=== PATIENT | female | born 2000 | race Caucasian/White ===

== ENCOUNTER 2025-01-16 18:13 | Emergency (ER) | payer MEDICAID, SELFPAY ==
[2025-01-16 19:21] VITALS: BP 110/65; PULSE 84; RESP 17; TEMP 36.9; O2SAT 99
--- NOTE | 2025-01-16 19:27 | PD.EDPREG ---
ED OB Contraction Preg RMI/HPI General Chief complaint: Vaginal Bleeding Stated complaint: Vaginal bleeding since last night, + preg test Time Seen by Provider: 01/16/25 19:27 Arrival date/time: 01/16/25 18:13 RME / HPI RME / HPI Narrative: This section includes all my notes and documentations, including HPI, PE, and ED course. Kosta Smith MD HPI: 24 y/o female with Hx of oligomenorrhea presents with vaginal bleeding and cramping x approximately 24 hours. Patient's LMP was the second or third week of September. She has taken 2 positive home tests. Patient has not received any care. No other complaints. ROS: All negative except as documented in HPI. Physical Exam: General: Alert and oriented. No acute distress when remaining still. Eyes: Conjunctivae and lids clear. ENT: No nasal congestion. Neck: Supple. Heart: RRR. Lungs: No respiratory distress. Good air movement. No rhonchi, wheezing, rales. Abdomen: Soft and nontender. Normal bowel sounds. No distension. No rebound or guarding. Back: No CVA tenderness. Skin: Warm and dry. Neuro: Alert and oriented X 3. I reviewed all diagnostic test results: My interpretation of the EKG is: My interpretation of the chest x-ray is: My review of the CT report is: Blood tests and urine tests Covid/Influenza At this point, diagnoses include: Treatment here included: Critical care Significant improvement Recommended Not yet done: I discussed the case with our hospitalist. About the presentation and exam and diagnostics and treatments here. And need of further care in the hospital. Will accept the patient. Not yet done: Based on my best medical judgment, made decision no further evaluation or treatment indicated at this time. Patient understands and agrees to the discharge instructions customized and printed, see below. Kosta Smith MD Related Data Previous Rx's ?Medication ?Instructions ?Recorded ibuprofen 600 mg tablet 600 mg PO Q8H PRN fever or pain 07/01/18 #30 tabs ondansetron HCl 4 mg tablet 4 mg PO QID PRN nausea and 07/01/18 (Zofran) vomiting #10 tabs Allergies Allergy/AdvReac Type Severity Reaction Status Date / Time No Known Allergies Allergy Verified 01/16/25 18:19 Review of Systems Review of Systems Systems Reviewed: All systems reviewed, normal except as documented ED Exam Narrative Physical exam: Refer to HPI above Course Quality Measures none Orders Category Date Time Status US OB <= 14 weeks fetus Stat Exams 01/16/25 19:30 Ordered Beta HCG,Quantitative Stat Lab 01/16/25 19:31 Ordered Bilirubin,Direct Stat Lab 01/16/25 19:31 Ordered CBC Stat Lab 01/16/25 19:31 Ordered CMP [Comprehensive Metabolic Panel] Stat Lab 01/16/25 19:31 Ordered Drug Screen,Urine Stat Lab 01/16/25 19:37 Received Free T4 (Free Thyroxine) Stat Lab 01/16/25 19:31 Ordered Magnesium Stat Lab 01/16/25 19:31 Ordered Rh Testing Only Stat Lab 01/16/25 19:31 Ordered TSH [Thyroid Stimulating Hormone] Stat Lab 01/16/25 19:31 Ordered UA, C/S IF [Urinalysis, C/S if Indicated] Stat Lab 01/16/25 19:37 Completed Vital Signs Vital signs: Vital Signs Temperature 98.5 F 01/16/25 19:21 Pulse Rate 84 01/16/25 19:21 Respiratory Rate 17 01/16/25 19:21 Blood Pressure 110/65 01/16/25 19:21 Pulse Oximetry (%) 99 01/16/25 19:21 Oxygen Delivery Method Room Air 01/16/25 19:21 OB/Uterine Contractions MDM Narrative MDM Narrative:: Scribe Attestation: IAkosua am scribing for and in the presence of Dr. Smith. Provider Notation: Although this document has been carefully reviewed, there may still be some phonetic and other typographical errors.? These errors are purely grammatical due to imperfections in the software program and should not be construed in any way to? compromise the substance of the patient's medical care during this visit. 24 y/o female with Hx of oligomenorrhea presents with vaginal bleeding and cramping x approximately 24 hours. Patient's LMP was the second or third week of September. She has taken 2 positive home tests. Patient has not received any care. No other complaints. Patient data External records reviewed:: [facility] previous records (No recent ED records available for review.) Clinical information provided by:: patient Social determinants that could affect healthcare access:: none Patient has the following chronic illnesses:: None reported. How is presenting disease/condition affected by chronic disease/condition?: no chronic disease Evaluation data The following diagnostics were reviewed and interpreted by me:: lab results and radiology exam(s) Lab and/or radiology exams considered but not ordered:: None Medications / Prescriptions Medications or Prescriptions considered but not ordered:: None Discharge Plan Prescriptions/Referrals Prescriptions/Med Rec: No Action ibuprofen 600 mg tablet 600 mg PO Q8H PRN (Reason: fever or pain) Qty: 30 0RF ondansetron HCl [Zofran] 4 mg tablet 4 mg PO QID PRN (Reason: nausea and vomiting) Qty: 10 0RF Patient/Caregiver Discharge Instructions Print Language: Samoan
--- NOTE | 2025-01-16 19:30 | XR_ITS ---
Examination: Complete OB ultrasound, less than 14 weeks, transabdominal Date and time of exam: January 16, 2025 2138 hours INDICATIONS: Pelvic cramping and bleeding beginning 2 days ago Technique: Obstetrical ultrasound images less than 14 weeks performed via transabdominal imaging Findings: A normal shaped single intrauterine gestation is present in the uterus. CRL 1.2 cm corresponds to 7 weeks 3 days gestational age No cardiac motion Subchorionic hemorrhage 24 x 11 mm Ultrasonographic survey of visible and placental structures unremarkable. Amniotic fluid volume appears appropriate for this estimated gestational age. The right ovary 4.7 cm arterial flow 23 mm cyst Left ovary 2.7 cm arterial flow IMPRESSION: Intrauterine gestation corresponding to 7 weeks 3 days gestational age No cardiac motion Recommendation short-term follow-up study to confirm demise.
[2025-01-16 19:44] LABS: Collection Type, Urine Clean Catch
[2025-01-16 19:53] LABS: Amorphous Crystals,Urine Present (Absent); Bacteria,Urine Rare; Bilirubin,Urine Negative (Negative); Blood,Urine 3+ (Negative); Clarity,Urine Turbid (Clear/Hazy); Color,Urine Lt-Yellow (Lt Yel-Yel); Culture Indicated,Urine Not Indicated; Glucose, Urine Negative (Negative); Ketones,Urine Negative (Negative); Leukocyte Esterase,Urine Negative (Negative); Nitrite,Urine Negative (Negative); Protein,Urine Trace (Neg - Trace); RBC,Urine 58 /hpf (0-3); Specific Gravity,Urine 1.022 (1.001-1.035); Squamous Epithelial Cell,Urine 18 /hpf (0-5); Urobilinogen,Urine Negative mg/dL (0.0-1.0); WBC,Urine 1 /hpf (0-5)
[2025-01-16 19:55] LABS: Basophils % (Auto) 0 % (0-2.5); Eosinophils # (Auto) 0.1 Thou/mm3 (0.0-0.5); Eosinophils % (Auto) 1 % (0-10); Hematocrit 37.9 % (36.0-46.0); Hemoglobin 13.3 g/dL (12.0-16.0); Immature Granulocytes % (Auto) 0 % (0-0); Immature Granulocytes Auto 0.01 Thou/mm3 (0.00-0.00); Lymphocytes # (Auto) 1.6 Thou/mm3 (1.0-4.8); Lymphocytes % (Auto) 17 % (10-50); Mean Corpuscular HGB Conc 35.1 g/dl (31.0-37.0); Mean Corpuscular Hemoglobin 28.7 pg (25.0-35.0); Mean Corpuscular Volume 82 fL (80-100); Monocytes # (Auto) 0.4 Thou/mm3 (0.0-0.8); Monocytes % (Auto) 5 % (0-12); Neutrophils # (Auto) 7.5 Thou/mm3 (1.8-7.7); Neutrophils % (Auto) 77 % (37-80); Nucleated Red Blood Cell % 0 /100 WBC (0); Platelet Count 282 Thou/mm3 (140-440); RDW Standard Deviation 39.4 fL (36.4-46.3); Red Blood Count 4.64 Miln/mm3 (4.00-5.20); White Blood Count 9.7 Thou/mm3 (3.6-11.0)
--- NOTE | 2025-01-16 20:01 | PD.EDVAGBL ---
ED OB Contraction Preg RMI/HPI General Chief complaint: Vaginal Bleeding Stated complaint: Vaginal bleeding since last night, + preg test Time Seen by Provider: 01/16/25 19:27 Arrival date/time: 01/16/25 18:13 RME / HPI RME / HPI Narrative: This section includes all my notes and documentations, including HPI, PE, and ED course. Kosta Smith MD HPI: 24 y/o female with Hx of Oligomenorrhea and Marijuana use presents with vaginal spotting and cramping x approximately 24 hours. No menstruation for couple of months. Home positive few days ago. No other complaints. ROS: All negative except as documented in HPI. Physical Exam: General: Alert and oriented. No acute distress when remaining still. Eyes: Conjunctivae and lids clear. ENT: No nasal congestion. Neck: Supple. Heart: RRR. Lungs: No respiratory distress. Good air movement. No rhonchi, wheezing, rales. Abdomen: Soft and nontender. Normal bowel sounds. No distension. No rebound or guarding. Back: No CVA tenderness. Skin: Warm and dry. Neuro: Alert and oriented X 3. I reviewed all diagnostic test results: My review of the US report is: Intrauterine gestation corresponding to 7 weeks 3 days gestational age. No cardiac motion. Blood tests and urine tests unremarkable, except hCG 3456 and K 3.3. At this point, diagnoses include: Threatened miscarriage. Treatment here included: Oral KCl. Recommended expectant management. Based on my best medical judgment, made decision no further evaluation or treatment indicated at this time. Patient understands and agrees to the discharge instructions customized and printed, see below. Discharge Instructions from Dr. Smith printed for you: 1.? After evaluation, your is in the uterus. 2.? But there is no heart activity. We may be too early. 3.? Only time will tell what will happen. If your symptoms, including bleeding, worsen, you can have a miscarriage. If your symptoms stop, you can have successful . 4.? If you do have a miscarriage, we won't be able to save your baby. Under 20-24 weeks, we can't save the baby. 5.? No sexual activity until cleared by a doctor taking care of you. 6.? See a private doctor on 01/19/2025 for recheck and further care. Ask to review all test results and official radiology reports, to make sure you receive all necessary follow-ups and monitoring. Your hCG ( hormone level) was 3456.? This doubles every 2 to 3 days in normal . 7.? Seek immediate medical care with intolerable pain, extremely heavy vaginal bleeding (soaking more than 3 pads per hour), or with any concerns. Kosta Smith MD Related Data Previous Rx's ?Medication ?Instructions ?Recorded ibuprofen 600 mg tablet 600 mg PO Q8H PRN fever or pain 07/01/18 #30 tabs ondansetron HCl 4 mg tablet 4 mg PO QID PRN nausea and 07/01/18 (Zofran) vomiting #10 tabs Allergies Allergy/AdvReac Type Severity Reaction Status Date / Time No Known Allergies Allergy Verified 01/16/25 18:19 Review of Systems Review of Systems Systems Reviewed: All systems reviewed, normal except as documented Past Medical History Social History SUBSTANCE USE: marijuana ED Exam Narrative Physical exam: Refer to HPI Course Quality Measures none Orders Category Date Time Status US OB <= 14 weeks fetus Stat Exams 01/16/25 19:30 Completed Beta HCG,Quantitative Stat Lab 01/16/25 19:42 Completed Bilirubin,Direct Stat Lab 01/16/25 19:42 Completed CBC Stat Lab 01/16/25 19:42 Completed CMP [Comprehensive Metabolic Panel] Stat Lab 01/16/25 19:42 Completed Drug Screen,Urine Stat Lab 01/16/25 19:37 Completed Free T4 (Free Thyroxine) Stat Lab 01/16/25 19:42 Completed Magnesium Stat Lab 01/16/25 19:42 Completed Rh Testing Only Stat Lab 01/16/25 19:42 Completed TSH [Thyroid Stimulating Hormone] Stat Lab 01/16/25 19:42 Completed UA, C/S IF [Urinalysis, C/S if Indicated] Stat Lab 01/16/25 19:37 Completed KCL 10% Liq UDC 15 ML Med 01/16/25 20:32 Discontinued 40 meq PO X1 ONE Vital Signs Vital signs: Vital Signs Temperature 98.5 F 01/16/25 19:21 Pulse Rate 84 01/16/25 19:21 Respiratory Rate 17 01/16/25 19:21 Blood Pressure 110/65 01/16/25 19:21 Pulse Oximetry (%) 99 01/16/25 19:21 Oxygen Delivery Method Room Air 01/16/25 19:21 Vaginal Bleeding MDM Narrative MDM Narrative: Scribe Attestation: I, Akosua Rivera, am scribing for and in the presence of Dr. Smith. Provider Notation: Although this document has been carefully reviewed, there may still be some phonetic and other typographical errors. These errors are purely grammatical due to imperfections in the software program and should not be construed in any way to compromise the substance of the patient's medical care during this visit. 24 y/o female with Hx of Oligomenorrhea and Marijuana use presents with vaginal bleeding and cramping x approximately 24 hours. Patient's LMP was the second or third week of September. She has taken 2 positive home tests. Patient has not received any care. No other complaints. Patient data External records reviewed:: [facility] previous records (No recent ED records available for review.) Clinical information provided by:: patient Social determinants that could affect healthcare access:: none Patient has the following chronic illnesses:: None reported How is presenting disease/condition affected by chronic disease/condition?: no chronic disease Evaluation data The following diagnostics were reviewed and interpreted by me:: lab results and radiology exam(s) Lab and/or radiology exams considered but not ordered:: None Interpretation Summary: I reviewed all diagnostic test results: My review of the US report is: Intrauterine gestation corresponding to 7 weeks 3 days gestational age. No cardiac motion. Blood tests and urine tests unremarkable, except hCG 3456 and K 3.3. Medications / Prescriptions Medications or Prescriptions considered but not ordered:: None Medication administrations:: Medication Administration History Discontinued Medications Potassium Chloride (Potassium Chloride 10% 20 Meq/15 Ml Udc) 40 meq PO X1 ONE Stop: 01/16/25 20:33 Last Admin: 01/16/25 20:56 Dose: 40 meq Documented By: KCl Consultations Consultation(s) initiated? (list below): No Diagnosis Vaginal Bleeding Differential Diagnosis: missed , threatened , dysfunctional uterine bleeding, menometrorrhagia, incomplete , ectopic without intrauterine and vaginal bleeding Most likely diagnosis given after review of the tests above:: Threatened miscarriage Admission Indicated Admission indicated?: not indicated Explain why admission is indicated or not indicated:: With no condition needing emergent intervention, there was no indication for admission. Admission Request Was there a request for admission?: No Disposition Plan Disposition Plan: Discharge Discharge Attestation Discharge Attestation: The patient and all family members were given an opportunity to ask questions and understood the discharge instructions. Discharge instructions specifically effects, indications for sooner follow up or return to the emergency department, and the expected course of current diagnosis. Patient condition: Stable Discharge Plan Plan Patient Disposition: HOME (Self Care) Prescriptions/Referrals Prescriptions/Med Rec: No Action ibuprofen 600 mg tablet 600 mg PO Q8H PRN (Reason: fever or pain) Qty: 30 0RF ondansetron HCl [Zofran] 4 mg tablet 4 mg PO QID PRN (Reason: nausea and vomiting) Qty: 10 0RF Referrals: No Primary/Family,Physician [Primary Care Provider] - In 1 week Problem List Clinical Impression: Threatened miscarriage Patient/Caregiver Discharge Instructions Discharge Activity: activity as tolerated Education Materials: ED Possible Miscarriage ... Additional Instructions: Discharge Instructions from Dr. Smith printed for you: 1.? After evaluation, your is in the uterus. 2.? But there is no heart activity. We may be too early. 3.? Only time will tell what will happen. If your symptoms, including bleeding, worsen, you can have a miscarriage. If your symptoms stop, you can have successful . 4.? If you do have a miscarriage, we won't be able to save your baby. Under 20-24 weeks, we can't save the baby. 5.? No sexual activity until cleared by a doctor taking care of you. 6.? See a private doctor on 01/19/2025 for recheck and further care. Ask to review all test results and official radiology reports, to make sure you receive all necessary follow-ups and monitoring. Your hCG ( hormone level) was 3456.? This doubles every 2 to 3 days in normal . 7.? Seek immediate medical care with intolerable pain, extremely heavy vaginal bleeding (soaking more than 3 pads per hour), or with any concerns. Print Language: Maldivian Stand Alone Forms: [employer] Award Info., Patient Portal Info Letter
[2025-01-16 20:11] LABS: Amphetamine/Methamp Scrn,U Negative (Negative); Barbiturate Screen,Urine Negative (Negative); Benzodiazepines Screen,Urine Negative (Negative); Benzoylecgonine Screen, Ur Negative (Negative); Fentanyl Screen,Urine Negative (Negative); Opiate Screen,Urine Negative (Negative); THC Screen,Urine Positive (Negative)
[2025-01-16 20:24] LABS: Alanine Aminotransferase 14 U/L (10-49); Albumin, Serum 4.6 gm/dL (3.5-5.0); Albumin/Globulin Ratio 2.2 (1.2-2.2); Alkaline Phosphatase 86 U/L (46-116); Anion Gap 8 (7-16); Aspartate Amino Transferase 12 U/L (0-34); BUN/Creatinine Ratio 15 Ratio (12-20); Bilirubin,Direct 0.1 mg/dL (0.0-0.3); Bilirubin,Total 0.3 mg/dL (0.3-1.2); Blood Urea Nitrogen 9 mg/dL (9-23); Calcium 9.1 mg/dL (8.3-10.6); Calcium (Corrected) 9.1 mg/dL (8.5-10.1); Carbon Dioxide 26.7 mMol/L (20.0-31.0); Chloride 105 mMol/L (98-107); Creatinine (Component) 0.6 mg/dL (0.6-1.3); Free T4 (Free Thyroxine) 0.94 ng/dL (0.89-1.76); Globulin 2.1 gm/dL (2.3-3.5); Glucose 77 mg/dL (74-106); Magnesium 2.2 mg/dL (1.6-2.6); Osmolality,Calculated 277 (275-295); Potassium 3.3 mMol/L (3.4-5.1); Sodium 140 mMol/L (136-145); Thyroid Stimulating Hormone 1.79 uIU/mL (0.55-4.78); Total Protein 6.7 gm/dL (5.7-8.2); eGFR > 60 See Note
[2025-01-16 20:31] LABS: Beta HCG,Quantitative 3456 mIU/mL (<5.0)
[2025-01-16] MEDS: POTASSIUM CHLORIDE 10% 20 MEQ/15 ML UDC 40 MEQ PO (20:56)
== END 2025-01-16 22:44 | disposition home or self-care (01) ==
PROVIDERS: Emergency Provider Emergency Medicine
DX: O20.0 Threatened abortion (principal); Z3A.01 Less than 8 weeks gestation of pregnancy
CPT/HCPCS: 36415; 76801; 80053; 80307; 81001; 82248; 83735; 84439; 84443; 84702; 85025; 86901; 99284; A9270

== ENCOUNTER 2025-01-18 16:45 | Emergency (ER) | payer MEDICAID, SELFPAY ==
[2025-01-18 16:54] VITALS: BP 70/58; BP 79/51; PULSE 94; RESP 18; TEMP 36.9; O2SAT 100; BMI 18.9
[2025-01-18] MEDS: SODIUM CHLORIDE 0.9% 1000 ML 1,000 ML 999 ML IV (17:35)
--- NOTE | 2025-01-18 17:42 | XR_ITS ---
Examination: Complete OB ultrasound, less than 14 weeks, transabdominal Date and time of exam: January 18, 2025, 1758 hours INDICATIONS: Pelvic cramping and vaginal bleeding beginning 4 days ago, intrauterine gestation corresponding to 7 weeks 3 days no cardiac motion and pelvic sonogram January 16, 2025 Technique: Obstetrical ultrasound images less than 14 weeks performed via transabdominal imaging Findings: Uterus 11.6 cm, and no intrauterine gestation Thickened endometrial stripe 6.8 x 3.1 x 3.7 cm, retained process of conception Right ovary 4.1 cm arterial flow 24 x 23 mm cyst Left ovary 3.2 cm arterial flow IMPRESSION: Spontaneous in progress, positive for retained products of conception
[2025-01-18 17:54] VITALS: BP 123/61; PULSE 86; RESP 15; TEMP 36.5; O2SAT 100
--- NOTE | 2025-01-18 17:54 | PD.EDVAGBL ---
ED OB Contraction Preg RMI/HPI General Chief complaint: Vaginal Bleeding Stated complaint: MISCARRIAGE; BLEEDING NON-STOP Time Seen by Provider: 01/18/25 17:38 Arrival date/time: 01/18/25 16:45 Limitations: no limitations RME / HPI RME / HPI Narrative: Patient is a 24-year-old female who is here today for vaginal bleeding. She was seen here recently for threatened . She is back today as she has had significant vaginal bleeding and lower abdominal cramping that started today. She states she is passing golf ball size clots. She states she is gone through several pads and now has began using adult undergarments that she is bleeding through. She is A0. She denies any chronic medical illness or allergies. When she arrived to the ER her blood pressure was 70/58, her vital signs were otherwise unremarkable. Related Data Previous Rx's ?Medication ?Instructions ?Recorded ibuprofen 600 mg tablet 600 mg PO Q8H PRN fever or pain 07/01/18 #30 tabs ondansetron HCl 4 mg tablet 4 mg PO QID PRN nausea and 07/01/18 (Zofran) vomiting #10 tabs Allergies Allergy/AdvReac Type Severity Reaction Status Date / Time No Known Allergies Allergy Verified 01/18/25 16:48 Review of Systems Review of Systems Systems Reviewed: All systems reviewed, normal except as documented ED Exam General Limitations: Present no limitations General appearance: Present alert and in no apparent distress Head Head exam: Present atraumatic Eye Eye exam: Present normal appearance, PERRL and EOMI ENT ENT exam: Present normal exam, normal oropharynx and mucous membranes moist Neck Neck exam: Present normal inspection, full ROM and trachea midline Chest Chest inspection: Present normal inspection and symmetric chest wall rise Respiratory Respiratory exam: Present normal lung sounds bilaterally Cardiovascular Cardiovascular exam: Present regular rate and normal rhythm Abdominal Exam Abdominal exam: Present soft and tenderness; Absent guarding Extremities Exam Extremities exam: Present normal inspection and full ROM Back Exam Back exam: Present normal inspection and full ROM Neurological Exam Neurological exam: Present alert, oriented X3 and CN II-XII intact Psychiatric Psychiatric exam: Present normal affect and normal mood Skin Skin exam: Present warm, dry, intact and normal color Course Course Course Narrative: Patient arrived to the ER and was hypotensive. A fluid bolus was initiated and her blood pressure normalized. Her CBC and lactic acid resulted. She has a lactic acidosis and a leukocytosis. This triggered our maternal sepsis. Dr. Ortega was paged and the case were discussed. Dr. Davalos will see the patient in the ER likely perform D&C. No further recommendations for interventions in the ER including antibiotics at this time. This were discussed with the patient. She initially declined pain medication but now is amendable to this. She remains hemodynamically stable. Quality Measures none Orders Category Date Time Status Bedside Blood Glucose NOW Care 01/18/25 17:58 Active Insert IV NOW Care 01/18/25 17:54 Active US OB <= 14 weeks fetus Stat Exams 01/18/25 17:42 Completed Beta HCG,Quantitative Stat Lab 01/18/25 17:50 Received CBC Stat Lab 01/18/25 17:50 Completed CMP [Comprehensive Metabolic Panel] Stat Lab 01/18/25 17:50 Received Lactic Acid [Lactate (Lactic Acid)] Stat Lab 01/18/25 17:50 Results Type and Screen Stat Lab 01/18/25 17:50 Received UA, C/S IF [Urinalysis, C/S if Indicated] Stat Lab 01/18/25 17:41 Ordered Morphine Inj Med 01/18/25 18:57 Discontinued 2 mg IVP X1 ONE Sodium Chloride 0.9% 1000 ml [Ns] 1,000 ml Med 01/18/25 17:30 Discontinued IV 999 mls/hr Vital Signs Vital signs: Vital Signs Temperature 98.5 F 01/18/25 16:54 Pulse Rate 94 01/18/25 16:54 Respiratory Rate 18 01/18/25 16:54 Blood Pressure 79/51 L 01/18/25 16:54 Pulse Oximetry (%) 100 01/18/25 16:54 Oxygen Delivery Method Room Air 01/18/25 16:54 Vaginal Bleeding MDM Narrative MDM Narrative: Patient is a 24-year-old female who was seen here recently for threatened miscarriage. She developed increased vaginal bleeding this afternoon and came to the ER. She was found a be hypotensive initially. She responded well to 1 L normal saline via IV. Her blood pressure normalized. She did not have any tachycardia or fever. She is found to have a lactic acidosis and leukocytosis during the workup. This triggered her sepsis alert. FLUID JET CUTTER OPERATOR was paged, Dr. Ortega was consulted and agreed to see the patient in the ER. No further interventions including antibiotics were recommended at this time. Patient will be admitted to FLUID JET CUTTER OPERATOR for likely D&C. Patient data External records reviewed:: [facility] previous records Clinical information provided by:: patient and family Social determinants that could affect healthcare access:: none Patient has the following chronic illnesses:: n/a How is presenting disease/condition affected by chronic disease/condition?: no chronic disease Evaluation data The following diagnostics were reviewed and interpreted by me:: lab results (Significant leukocytosis with a stable H&H. Lactic acidosis present) and radiology exam(s) (Products of conception noted) Lab and/or radiology exams considered but not ordered:: n/a Interpretation Summary: Miscarriage, leukocytosis, lactic acidosis Medications / Prescriptions Medications or Prescriptions considered but not ordered:: n/a Medication administrations:: Medication Administration History Discontinued Medications Sodium Chloride (Ns) 1,000 mls @ 999 mls/hr IV .Q1H1M ONE Stop: 01/18/25 18:30 Last Infusion: 01/18/25 18:33 Dose: Infused Documented By: Admin: 01/18/25 17:35 Dose: 999 mls/hr Documented By: BERNA Morphine Sulfate (Morphine Sulf Inj 10 Mg/Ml Vial) 2 mg IVP X1 ONE Stop: 01/18/25 18:58 See above Consultations Consultation(s) initiated? (list below): Yes Diagnosis Vaginal Bleeding Differential Diagnosis: menometrorrhagia, incomplete and vaginal bleeding Most likely diagnosis given after review of the tests above:: Incomplete miscarriage Admission Indicated Admission indicated?: indicated Admission Request Was there a request for admission?: Yes Admission Attestation Admission request attestation: Discussed case with [] from Hospitalist service regarding admission. Discussed patients ED course, exam findings, labs, and radiology results. The Hospitalist [agrees,declines] to accept the patient for admission. Disposition Plan Disposition Plan: Admit Discharge Plan Plan Patient Disposition: Admit Acute Care w/in Hospital Patient condition on transfer: Stable Prescriptions/Referrals Prescriptions/Med Rec: No Action ibuprofen 600 mg tablet 600 mg PO Q8H PRN (Reason: fever or pain) Qty: 30 0RF ondansetron HCl [Zofran] 4 mg tablet 4 mg PO QID PRN (Reason: nausea and vomiting) Qty: 10 0RF Referrals: No Primary/Family,Physician [Primary Care Provider] - In 1 week Problem List Clinical Impression: Incomplete miscarriage, Acute hypotension, Leukocytosis Patient/Caregiver Discharge Instructions Print Language: Indonesian Stand Alone Forms: [employer] Award Info., Patient Portal Info Letter
[2025-01-18 18:28] LABS: Lactate (Lactic Acid) 2.5 mMol/L (0.4-2.0)
[2025-01-18 18:36] LABS: Basophils # (Auto) 0.1 Thou/mm3 (0.0-0.2); Basophils % (Auto) 0 % (0-2.5); Eosinophils # (Auto) 0.4 Thou/mm3 (0.0-0.5); Eosinophils % (Auto) 2 % (0-10); Hematocrit 37.6 % (36.0-46.0); Hemoglobin 13.3 g/dL (12.0-16.0); Immature Granulocytes % (Auto) 0 % (0-0); Immature Granulocytes Auto 0.08 Thou/mm3 (0.00-0.00); Lymphocytes # (Auto) 4.1 Thou/mm3 (1.0-4.8); Lymphocytes % (Auto) 22 % (10-50); Mean Corpuscular HGB Conc 35.4 g/dl (31.0-37.0); Mean Corpuscular Hemoglobin 28.9 pg (25.0-35.0); Mean Corpuscular Volume 82 fL (80-100); Monocytes # (Auto) 1.2 Thou/mm3 (0.0-0.8); Monocytes % (Auto) 7 % (0-12); Neutrophils # (Auto) 12.6 Thou/mm3 (1.8-7.7); Neutrophils % (Auto) 69 % (37-80); Nucleated Red Blood Cell % 0 /100 WBC (0); Platelet Count 441 Thou/mm3 (140-440); RDW Standard Deviation 39.9 fL (36.4-46.3); White Blood Count 18.4 Thou/mm3 (3.6-11.0)
[2025-01-18 18:57] LABS: Alanine Aminotransferase 15 U/L (10-49); Albumin, Serum 4.5 gm/dL (3.5-5.0); Albumin/Globulin Ratio 2.1 (1.2-2.2); Alkaline Phosphatase 83 U/L (46-116); Anion Gap 10 (7-16); Aspartate Amino Transferase 16 U/L (0-34); BUN/Creatinine Ratio 10 Ratio (12-20); Bilirubin,Total 0.5 mg/dL (0.3-1.2); Blood Urea Nitrogen 8 mg/dL (9-23); Calcium 9.7 mg/dL (8.3-10.6); Calcium (Corrected) 9.7 mg/dL (8.5-10.1); Carbon Dioxide 24.7 mMol/L (20.0-31.0); Chloride 105 mMol/L (98-107); Creatinine (Component) 0.8 mg/dL (0.6-1.3); Estimated Creatinine Clearance 76.6 mL/min (>60); Globulin 2.1 gm/dL (2.3-3.5); Glucose 147 mg/dL (74-106); Osmolality,Calculated 280 (275-295); Potassium 3.2 mMol/L (3.4-5.1); Sodium 140 mMol/L (136-145); Total Protein 6.6 gm/dL (5.7-8.2); eGFR > 60 See Note
[2025-01-18 19:09] LABS: Beta HCG,Quantitative 1769 mIU/mL (<5.0)
[2025-01-18] MEDS: ONDANSETRON INJ 2 MG/ML INJ 2 ML 4 MG IVP (19:18)
--- NOTE | 2025-01-18 19:22 | PC.NURSE ---
1854:L&D jig and fixture builder at bedside to assess pt. due to Maternal Sepsis called, Pt. is A/O x4, lying on gurney, reports she is a A1. Pt's EDC and LMP are unsure, pt. reports she did not know she was and states, I found out I was one week ago. Pt. reports she came in to the ER on 01/16/25 due to having pelvic cramping and spotting, U/S was obtained and was sent home. Pt. reports the spotting became a larger amount with clots at around 1530 today and made us come in to get seen . No bleeding noted at this time, pt. unable to report pain on a pain scale, requesting ice chips. 1902:Primary nurse made aware pt. requesting ice chips. Primary nurse reports, pt. to be kept NPO at this time per MD orders. 1904:Pt. was made aware that she is to be kept NPO, pt. verbalized understanding and agreed to POC.
[2025-01-18] MEDS: MORPHINE SULF INJ 10 MG/ML VIAL 2 MG IVP (19:48)
--- NOTE | 2025-01-18 20:00 | PD.GYNHP ---
Documentation for date of: 01/18/25 ASSIGNMENT DESK EDITOR - HPI History of Present Illness History of present illness: Montserrat is a 24yo with diagnosis of miscarriage made on 01/16 when she presented for bleeding and was found to have on ultrasound 7w3d gestation (CRL 1.2cm) with absent FCA and subchorionic hematoma [id number]. Today she went from spotting in the morning to heavy bleeding with large clots in the afternoon. She last ate at 0800, small amount of cereal. Review of Systems Review of Systems Narrative Review of Systems: Review of Systems Systems Reviewed: All systems reviewed, normal except as documented Constitutional Constitutional: Denies body ache(s), Denies chills, Denies fever(s) and Denies headache(s) ENT Ears, Nose, Mouth, and Throat: Denies headache(s) and Denies vertigo Cardiovascular Cardiovascular: Denies chest pain, Denies palpitations, Denies dyspnea and Denies syncope Respiratory Respiratory: Denies cough, Denies dyspnea Gastrointestinal Gastrointestinal: Emesis while in ER Neurologic Neurologic: Denies convulsions, Denies headache(s), Denies other visual disturbances, Denies syncope and Denies vertigo Past Medical History Family History OTHER FAMILY HX: non-contributory Surgical History OTHER SURGICAL HX: tympanostomy tubes as a child Social History SOCIAL: Occasional marijuana use. No tobacco. Rare ETOH. , supportive spouse, has 3 children. Past Medical History Comments PMH COMMENT: BMI 18.9 Marijuana use Hx of pre-eclampsia with all 3 of her children, 1st child born at 32 weeks. 4th was early miscarriage passed naturally at home. No pap yet done Denies any hx of STIs Meds Home Medications and Allergies Allergies Allergy/AdvReac Type Severity Reaction Status Date / Time No Known Allergies Allergy Verified 01/18/25 16:48 Exam - ASSIGNMENT DESK EDITOR Vital Signs Temp Pulse Resp BP Pulse Ox O2 Del Method 97.7 F 86 15 123/61 100 Room Air 01/18/25 17:54 01/18/25 17:54 01/18/25 17:54 01/18/25 17:54 01/18/25 17:54 01/18/25 17:54 Narrative Exam General: well developed, well nourished, no acute distress, conversant Cardiac: RRR, no murmurs Lungs: breathing without distress Abdomen: soft, gravid, non-tender, no rebound or guarding Extremities: no pain with palpation of calves ASSIGNMENT DESK EDITOR - Results Labs 01/18/25 17:50 01/18/25 17:50 Labs: Short CBC 01/18/25 Range/Units 17:50 WBC 18.4 H D (3.6-11.0) Thou/mm3 Hgb 13.3 (12.0-16.0) g/dL Hct 37.6 (36.0-46.0) % Plt Count 441 H D (140-440) Thou/mm3 BMP 01/18/25 17:50 Sodium 140 Potassium 3.2 L Chloride 105 Carbon Dioxide 24.7 BUN 8 L Creatinine 0.8 Glucose 147 H D Calcium 9.7 Liver Function 01/18/25 Range/Units 17:50 Total Bilirubin 0.5 (0.3-1.2) mg/dL AST 16 (0-34) U/L ALT 15 (10-49) U/L Alkaline Phosphatase 83 (46-116) U/L Albumin 4.5 (3.5-5.0) gm/dL Assessment and Plan Assessment and plan (1) Incomplete miscarriage: Status: Acute Assessment and plan: Montserrat is a 24yo with 7 week incomplete miscarriage currently underway with resultant hypotension and reactive leukocytosis. Hgb 13.3, but bleeding heavily and passing large clots. Pelvic ultrasound 01/16 showed 7w3d (CRL 1.2cm) fetus with absent FCA. Today pelvic ultrasound shows EMS 6.8x3.1x3.7cm consistent with retained products of conception. With IV fluid bolus hypotension immediately corrected. Afebrile, normal pulse. No s/sx of infection. Last ate at 0800 today. Plan: -Discussed diagnosis with patient and her as well as treatment options to include: expectant management, medical management vs surgical management. After discussing all r/b/a of each option, patient would like to proceed with suction dilation and curettage. -Counseled/consented re: suction D&C. Discussed all r/b/a to include: bleeding (possible need for blood transfusion which patient is amenable to if necessary), infection, injury to nearby structures such as bladder, bowel, ureters, blood vessels, nerves with possible need for transition to laparotomy, . Answered all questions to patient and her 's satisfaction. -NPO -IV abx ppx: doxycycline 100mg IV x1 -OR team called in, will proceed when team is ready Sherri Ortega MD (2) Acute hypotension: Status: Acute (3) Leukocytosis: Status: Acute Quality Measures Quality Measures none (3) Leukocytosis Qualifiers: Leukocytosis type: other Qualified Code(s): D72.828 - Other elevated white blood cell count
[2025-01-18 20:11] VITALS: BP 114/72; PULSE 76; RESP 20; TEMP 36.7; O2SAT 98
[2025-01-18 21:24] LABS: Reflex Lactate? Y
== END 2025-01-18 21:00 | disposition home or self-care (01) ==
PROVIDERS: Physician Assistant Medical; Emergency Provider Family Medicine
DX: O03.33 Metabolic disorder following incomplete spontaneous abortion (principal); O03.38 Urinary tract infection following incomplete spontaneous abortion; E87.20 Acidosis, unspecified
CPT/HCPCS: 36415; 76801; 80053; 81001; 83605; 84702; 85025; 86850; 86900; 86901; 96361; 96374; 96375; 99285; J1100; J2270; J2371; J2405; J2704; J2765; J3010; J3490; J7030

== ENCOUNTER 2025-01-18 20:25 | Day surgery (SDC) | payer MEDICAID, SELFPAY ==
--- NOTE | 2025-01-18 20:00 | ESHP_ITS ---
Documentation for date of: 01/18/25 COMPTOMETER OPERATOR - HPI History of Present Illness History of present illness: Montserrat is a 24yo with diagnosis of miscarriage made on 01/16 when she presented for bleeding and was found to have on ultrasound 7w3d gestation (CRL 1.2cm) with absent FCA and subchorionic hematoma [id number]. Today she went from spotting in the morning to heavy bleeding with large clots in the afternoon. She last ate at 0800, small amount of cereal. Review of Systems Review of Systems Narrative Review of Systems: Review of Systems Systems Reviewed: All systems reviewed, normal except as documented Constitutional Constitutional: Denies body ache(s), Denies chills, Denies fever(s) and Denies headache(s) ENT Ears, Nose, Mouth, and Throat: Denies headache(s) and Denies vertigo Cardiovascular Cardiovascular: Denies chest pain, Denies palpitations, Denies dyspnea and Denies syncope Respiratory Respiratory: Denies cough, Denies dyspnea Gastrointestinal Gastrointestinal: Emesis while in ER Neurologic Neurologic: Denies convulsions, Denies headache(s), Denies other visual disturbances, Denies syncope and Denies vertigo Past Medical History Family History OTHER FAMILY HX: non-contributory Surgical History OTHER SURGICAL HX: tympanostomy tubes as a child Social History SOCIAL: Occasional marijuana use. No tobacco. Rare ETOH. , supportive spouse, has 3 children. Past Medical History Comments PMH COMMENT: BMI 18.9 Marijuana use Hx of pre-eclampsia with all 3 of her children, 1st child born at 32 weeks. 4th was early miscarriage passed naturally at home. No pap yet done Denies any hx of STIs Meds Home Medications and Allergies Allergies Allergy/AdvReac Type Severity Reaction Status Date / Time No Known Allergies Allergy Verified 01/18/25 16:48 Exam - COMPTOMETER OPERATOR Vital Signs Temp Pulse Resp BP Pulse Ox O2 Del Method 97.7 F 86 15 123/61 100 Room Air 01/18/25 17:54 01/18/25 17:54 01/18/25 17:54 01/18/25 17:54 01/18/25 17:54 01/18/25 17:54 Narrative Exam General: well developed, well nourished, no acute distress, conversant Cardiac: RRR, no murmurs Lungs: breathing without distress Abdomen: soft, gravid, non-tender, no rebound or guarding Extremities: no pain with palpation of calves COMPTOMETER OPERATOR - Results Labs 01/18/25 17:50 01/18/25 17:50 Labs: Short CBC 01/18/25 Range/Units 17:50 WBC 18.4 H D (3.6-11.0) Thou/mm3 Hgb 13.3 (12.0-16.0) g/dL Hct 37.6 (36.0-46.0) % Plt Count 441 H D (140-440) Thou/mm3 BMP 01/18/25 17:50 Sodium 140 Potassium 3.2 L Chloride 105 Carbon Dioxide 24.7 BUN 8 L Creatinine 0.8 Glucose 147 H D Calcium 9.7 Liver Function 01/18/25 Range/Units 17:50 Total Bilirubin 0.5 (0.3-1.2) mg/dL AST 16 (0-34) U/L ALT 15 (10-49) U/L Alkaline Phosphatase 83 (46-116) U/L Albumin 4.5 (3.5-5.0) gm/dL Assessment and Plan Assessment and plan (1) Incomplete miscarriage: Status: Acute Assessment and plan: Montserrat is a 24yo with 7 week incomplete miscarriage currently underway with resultant hypotension and reactive leukocytosis. Hgb 13.3, but bleeding heavily and passing large clots. Pelvic ultrasound 01/16 showed 7w3d (CRL 1.2cm) fetus with absent FCA. Today pelvic ultrasound shows EMS 6.8x3.1x3.7cm consistent with retained products of conception. With IV fluid bolus hypotension immediately corrected. Afebrile, normal pulse. No s/sx of infection. Last ate at 0800 today. Plan: -Discussed diagnosis with patient and her as well as treatment options to include: expectant management, medical management vs surgical management. After discussing all r/b/a of each option, patient would like to proceed with suction dilation and curettage. -Counseled/consented re: suction D&C. Discussed all r/b/a to include: bleeding (possible need for blood transfusion which patient is amenable to if necessary), infection, injury to nearby structures such as bladder, bowel, ureters, blood vessels, nerves with possible need for transition to laparotomy, . Answered all questions to patient and her 's satisfaction. -NPO -IV abx ppx: doxycycline 100mg IV x1 -OR team called in, will proceed when team is ready Sherri Ortega MD (2) Acute hypotension: Status: Acute (3) Leukocytosis: Status: Acute Quality Measures Quality Measures none (3) Leukocytosis Qualifiers: Leukocytosis type: other Qualified Code(s): D72.828 - Other elevated white blood cell count
[2025-01-18 22:19] VITALS: BP 113/50; PULSE 94; RESP 18; TEMP 36.4; O2SAT 100
--- NOTE | 2025-01-18 22:19 | SUR.PHASEI ---
pt received from OR in recovery bay 1. pt asleep but responds to voice, breathing unlabored on room air. v/s stable. pt dressing peripad cdi. report received from Riana Ortiz and Dr. Nuñez.
--- NOTE | 2025-01-18 22:21 | ESOP_ITS ---
Operative Note - E MAIL SYSTEM ADMINISTRATOR Procedure Date of procedure: 01/18/25 Procedure Performed: Suction dilation and curettage Indication: Montserrat is a 24yo with newly diagnosed miscarriage at 7w3d presenting with heavy bleeding, passage of clots. Hypotension and reactive leukocytosis noted on presentation. Patient counseled on all options for miscarriage management and desired surgical management with D&C after discussing all r/b/a. Pre-Op diagnosis: Incomplete at 7w3d Hypotension Reactive leukocytosis Post-Op diagnosis: Incomplete at 7w3d Hypotension Reactive leukocytosis Anesthesia type: General Fluids: crystalloid Fluid amount (mL): 1,000 Specimen: other (uterine contents/products of conception) Estimated blood loss (ml): 50 Findings: Upon speculum exam there was a mass of clot/tissue protruding through the cervix Complications: none Narrative: After obtaining informed consent, the patient was taken to the operating room where she underwent general anesthesia. She was placed in the low lithotomy position, and the perineum and vagina were prepped and draped in sterile fashion. She was given doxycycline 100mg IV x1 for surgical prophylaxis. The bivalved speculum was inserted into the vagina. The anterior segment of the cervix was grasped with a single-tooth tenaculum. There was a mass of clot/tissue protruding out of the cervix which was grasped with a ring forcep and gently teased in circular motion out of the cervix. Large amount of intact tissue was retrieved followed by another pass of the ring forcep just inside the cervix which received a very small piece of tissue only. No cervical dilation was required. An 8mm suction curette was introduced to the fundus of the uterus. Suction was activated at 60cm of water. 3 passes of suction curettage were used to remove the intrauterine contents. A sharp curette was used and good cry was noted in 360 degrees. 1 final pass with the suction curette insured removal of all intrauterine contents. Patient was given 0.2mg IM methergine and speculum was removed. The tenaculum was removed and tenaculum sites noted to be hemostatic. Bimanual massage was performed until good uterine tone was noted both in the fundus and lower uterine segment. Speculum re-placed in the vagina and complete hemostasis was noted. The bivalved speculum was removed. The patient was transferred to the recovery room in good condition. All counts correct x2. Surgical staff Operation Date: 01/18/25 21:15 <No data on this case meets the specified criteria> Diagnosis Discharge Diagnosis (1) S/P dilation and curettage: Status: Acute (2) Incomplete miscarriage: Status: Acute (3) Acute hypotension: Status: Acute (4) Leukocytosis: Status: Acute Problem List Completed Was Problem List Reviewed/Reconciled?: Yes (4) Leukocytosis Qualifiers: Leukocytosis type: other Qualified Code(s): D72.828 - Other elevated white blood cell count
[2025-01-18 22:25] VITALS: BP 109/52; PULSE 89; RESP 20; TEMP 36.4; O2SAT 100
--- NOTE | 2025-01-18 22:28 | ESDS_ITS ---
Planned Discharge Date 01/18/25 DS: Providers Provider Date of admission: 01/18/25 Primary care physician: Physician No Primary/Family Attending Provider on Admission: Sherri Ortega MD Attending Provider on DC: Sherri Ortega MD Discharging Provider: Sherri Ortega MD DS: Diagnosis Discharge Diagnosis (1) S/P dilation and curettage: Status: Acute (2) Incomplete miscarriage: Status: Acute (3) Acute hypotension: Status: Acute (4) Leukocytosis: Status: Acute Problem List Completed Was Problem List Reviewed/Reconciled?: Yes Hospital Course Hospital Course Hospital course: Montserrat is a 24yo with newly diagnosed miscarriage at 7w3d presenting with heavy bleeding, passage of clots. Hypotension and reactive leukocytosis noted on presentation. Hypotension immediately corrected with 1L IVF. Patient counseled on all options for miscarriage management and desired surgical management with D&C after discussing all r/b/a. She underwent uncomplicated D&C. EBL 50ml. Discharged from PACU. Status at Discharge Functional status at discharge: independent ambulation Overall status at discharge: patient is back to baseline Time Spent with Patient Time attestation: Total time spent providing and/or coordinating discharge services: Time spent: Less than 30 minutes Exam - SCENARIO WRITER Narrative Exam General: well developed, well nourished, no acute distress Cardiac: normal heart rate Lungs: breathing without distress Abdomen: soft, non-tender, no rebound or guarding Discharge Plan Plan Patient Disposition: HOME (Self Care) Patient condition on transfer: Stable Prescriptions/Referrals Prescriptions/Med Rec: New doxycycline monohydrate 100 mg capsule 200 mg PO .once 1 Days Qty: 2 0RF ibuprofen 800 mg tablet 800 mg PO Q8H PRN (Reason: pain) Qty: 20 0RF Discontinued ibuprofen 600 mg tablet 600 mg PO Q8H PRN (Reason: fever or pain) Qty: 30 0RF ondansetron HCl [Zofran] 4 mg tablet 4 mg PO QID PRN (Reason: nausea and vomiting) Qty: 10 0RF Referrals: Aguila Bennett MD [Physician] - No Primary/Family,Physician [Primary Care Provider] - Patient/Caregiver Discharge Instructions Discharge Activity: activity as tolerated and other Other Discharge Activity Instructions:: vaginal rest for 4 weeks Other Discharge Diet Instructions: regular diet Education Materials: Dilation and Curettage, Understanding Miscarriage ... Print Language: Chinese Activity Restrictions/Additional Instructions: follow up with Dr. Bennett's office, [facility] (address and phone number above) within 2 to 4 weeks for post-op visit and to establish care to obtain first pap smear Stand Alone Forms: [employer] Award Info., Patient Portal Info Letter Discharge Order Discharge Orders: Discharge (Routine); Ordered 01/18/25 Ordered By: Sherri Ortega (4) Leukocytosis Qualifiers: Leukocytosis type: other Qualified Code(s): D72.828 - Other elevated white blood cell count
[2025-01-18 22:30] VITALS: BP 102/52; PULSE 84; RESP 17; TEMP 36.4; O2SAT 100
[2025-01-18 22:35] VITALS: BP 107/55; PULSE 81; RESP 15; TEMP 36.4; O2SAT 99
[2025-01-18 22:50] VITALS: BP 99/54; PULSE 80; RESP 15; TEMP 36.4; O2SAT 97
--- NOTE | 2025-01-18 22:56 | SUR.PHASEII ---
pt able to tolerate oral fluids without difficulty swallowing or nausea/vomiting.
[2025-01-18 23:05] VITALS: BP 109/73; PULSE 93; RESP 15; TEMP 36.5; O2SAT 100
--- NOTE | 2025-01-18 23:25 | SUR.PHASEII ---
pt awake and alert, breathing unlabored on room air. v/s stable. pt dressing peripad cdi. pt able to ambulate to wheelchair with steady gait. d/c instructions given with s/o Chaparro in room, all questions answered. pt d/c via wheelchair with all belongings.
== END 2025-01-18 23:25 | disposition home or self-care (01) ==
PROVIDERS: Obstetrics & Gynecology; Referring Provider Obstetrics & Gynecology; Visit Provider Obstetrics & Gynecology
PROC: (CPT 58120; principal; 2025-01-18 21:00)
DX: O03.4 Incomplete spontaneous abortion without complication (principal); O03.38 Urinary tract infection following incomplete spontaneous abortion; O26.51 Maternal hypotension syndrome, first trimester; O99.111 Other diseases of the blood and blood-forming organs and certain disorders involving the immune mechanism complicating pregnancy, first trimester; D72.829 Elevated white blood cell count, unspecified; Z3A.01 Less than 8 weeks gestation of pregnancy; O99.321 Drug use complicating pregnancy, first trimester; F12.90 Cannabis use, unspecified, uncomplicated; O23.11 Infections of bladder in pregnancy, first trimester
CPT/HCPCS: 59812; A4217; J2210